=== PATIENT | female | born 1980 | race African-American/Black ===

== ENCOUNTER 2023-05-02 13:46 | Outpatient (CLI) | payer BC | END 2023-05-02 13:47 | disposition home or self-care (01) | LOC: CSHMAMMO 13:46 | PROVIDERS: ATTEND Obstetrics & Gynecology | DX: Z12.31 Encounter for screening mammogram for malignant neoplasm of breast (principal) | CPT/HCPCS: 77063; 77067 ==

== ENCOUNTER 2023-05-19 11:01 | Emergency (ER) | payer BC ==
[2023-05-19] MEDS ORDERED: Ketorolac Tromethamine 30 MG/ML VIAL ONE (11:47)
== END 2023-05-19 11:56 | disposition home or self-care (01) ==
LOC: CSHERS 11:01
DX: M54.42 Lumbago with sciatica, left side (principal)
CPT/HCPCS: 96372; 99283; J1885